=== PATIENT | female | born 1950 | race Caucasian/White ===

== ENCOUNTER 2024-01-22 03:14 | Observation (INO) | payer OTHER, SELFPAY ==
[2024-01-21 21:21] VITALS: BP 170/86
[2024-01-22] VITALS (12 sets, daily range): BP systolic 118–159; BP diastolic 65–81; PULSE 54–71; BMI 26.6; BMI 27.4
--- NOTE | 2024-01-22 00:45 | ED.GENMED ---
History of Present Illness
General
Chief Complaint: Fall
Source: patient and family (Son)
Exam Limitations: none
Time Seen by Provider: 01/22/24 00:20
Nursing documentation reviewed up to this point in time: agreed with
History of Present Illness
History of Present Illness:
73-year-old female with past medical history of hyperlipidemia who presents to the emergency room with her son via EMS for evaluation of left-sided numbness and heaviness; patient also reports some musculoskeletal complaints after a fall last week.
Patient reports that she started to have some tingling in her left leg this evening, son says that around 6 PM while they were eating dinner she got up from the table and was dragging her left leg. She says that her leg feels 'heavy.' He says that
she began to complain of numbness in her left arm and the left leg and EMS called to bring her to the hospital. Patient says that symptoms have improved slightly but she still is not back to normal. In addition to numbness and tingling in the left
arm and leg, left-sided heaviness she also reports some numbness in the left face. She denies any change in her vision or speech. She denies any headache. Her son does note that she has been generally weak and has had some dizziness over the past
week or so. In addition to above patient is also complaining of pain in her left hip and left shoulder/scapula�apparently she had a fall 10 days ago from ground-level and landed on her left hip and has had pain in the left upper back and the left
hip since. She is on aspirin, denies being on other blood thinners.
Review of Systems
Review of Systems
All Other Systems: ROS reviewed and negative except as documented in HPI and ROS
Constitutional: Reports fatigue; Denies fever or chills
Respiratory: Denies trouble breathing
Cardiac: Denies chest pain or palpitations
ABD/GI: Denies abdominal pain, nausea or vomiting
: Denies flank pain
Musculoskeletal: Reports joint pain and back pain; Denies neck pain
Neurological: Reports dizzy, weakness and numbness; Denies headache
Phy Exam
Physical Exam
Physical Exam:
General: Awake, alert, oriented x3; no acute distress
Head: Normocephalic, atraumatic
Eyes: Conjunctiva normal, EOMI, pupils equal round and reactive to light bilaterally
Throat: Airway intact, handling secretions
Neck: Trachea midline, no cervical spine tenderness
Lungs: Clear to auscultation bilaterally, no wheezing, rales, rhonchi
Heart: Regular rate and rhythm, no murmurs, gallops, or rubs
Abd: Soft, non distended, nontender
Back: Mild tenderness in the left scapular/subscapular region but no bruising, no midline thoracic or lumbar tenderness
Neuro: Patient reports subjective diminished sensation to left face, cranial nerves otherwise intact 2 through 12, speech fluid no dysarthria, no limb ataxia, she has pronator drift left upper extremity and drift in the left lower extremity, reports
subjective diminished sensation left arm and leg; strength intact 5/5 right upper and lower extremity with no drift
Skin: no rash, no lacerations, no bruising or ecchymosis or other signs of acute trauma
Extremities: Patient reports some mild pain on range of motion of the left hip; she also reports some mild pain on range of motion of the left shoulder which is apparently a chronic issue; no other tenderness in her extremities, moves right upper
and lower extremity through comfortable range of motion; pulses in all extremities
Scores
NIH Stroke Score
Level of Consciousness: 0 - Alert
LOC Questions: 0-Answers both correctly
LOC Commands: 0-Performs both correctly
Best Horizontal Gaze: 0-Normal
Visual Resendiz: 0=Normal, no visual loss
Facial Palsy: 0=Normal, symmetrical
Motor - Right Arm: 0=No drift 10 seconds
Motor - Left Arm: 1=Drift < 10 seconds
Motor - Right Le-No drift 5 seconds
Motor - Left Le-Drift < 5 seconds
Limb Ataxia: 0-Absent
Sensation: 1-Mild loss
Best Language: 0-No aphasia
Dysarthria: 0-Normal
Extinction and Inattention: 0-No abnormality
Total Score:: 3
Heart Failure Risk
Heart Failure Risk Score: Not Applicable
Heart Score for Chest Pain Patients
STEMI patient?: Not applicable
Withdrawal Assessment of Alcohol
Withdrawal Assessment Completed?: Not applicable
Course
Orders/Labs/Results
Orders:
Orders
01/22/24 00:23
CR Hip - LT w/wo Pel 2-3 Vw* Urgent
Comment:
Reason For Exam: left hip pain s/p fall
Include a pelvis x-ray?: Yes
01/22/24 00:24
CR Shoulder - Left Min 2 View* Urgent
Comment:
Reason For Exam: shoulder pain s/p fall
01/22/24 00:40
CT Chest W/o Iv Contrast Urgent
Comment:
Reason For Exam: left scapular/rib pain s/p fall last week
CT Head W/o Cont STROKE ALERT Urgent
Reason For Exam: left sided numbness/weakness
01/22/24 00:41
CT Head/Neck Ang STROKE ALERT Urgent
Comment:
Reason For Exam: left sided numbness/weakness
NEUROLOGY CONSULT Urgent
Consulting Provider: Burak Houser
Was physician already notified: Yes
Bedside Glucose- Treatment ONCE
Cardiac Monitoring- Treatment ONCE
Vital Signs- Treatment ONCE
Frequency: Hourly
COVID-19 Antigen Urgent
Source: Nasal Swab
Complete Blood Count/With Diff Urgent
Comprehensive Metabolic Panel Urgent
Urinalysis Reflex To Culture Urgent
O2 Therapy [RESP] Stat
Titrate/Wean O2 to maintain O2 sat greater than (%): 90
Pulse Ox/cont/shift [RESP] Stat
Quantity: 1
01/22/24 00:42
Electrocardiogram (*1) Stat
Reason for Study: Other
Other Reason for Exam: neuro symptoms
CT Brain Perfusion Urgent
Comment:
Reason For Exam: left sided numbness/weakness
EKG- Treatment ONCE
Vital Signs
Initial and Last Documented VS:
Initial Vital Signs
Temp Pulse Resp BP Pulse Ox
36.6 C 68 24 170/86 97
01/21/24 21:21 01/21/24 21:21 01/21/24 21:21 01/21/24 21:21 01/21/24 21:21
Last Documented Vital Signs
Temp Pulse Resp BP Pulse Ox
36.6 C 68 24 170/86 97
01/21/24 21:21 01/21/24 21:21 01/21/24 21:21 01/21/24 21:21 01/21/24 21:21
MDM/Problems Addressed
Differential Diagnosis Includes:
Left-sided weakness/numbness: Stroke�hemorrhagic or ischemic, subdural hemorrhage or other traumatic head injury, radiculopathy
Left upper back pain: Rib fracture, scapular fracture/shoulder injury, contusion
Left hip pain: Fracture, contusion, arthritis
MDM/Problems Addressed:
73-year-old female presents to the emergency room with her son for evaluation of left-sided numbness and tingling, heaviness. Onset at some point this afternoon, noticed by son at around 6 PM. Also complaining of some pain in the left upper back
and left hip status post fall 10 days ago. She is on aspirin no other blood thinners. Hypertensive otherwise normal vitals. Physical exam as above. Stroke alert called immediately after my initial assessment. IV placed labs sent off including a
CBC and a CMP. Will check CT head, CTA head and neck, CT perfusion. Will check CT chest to rule out rib fracture after a fall. Check x-ray of the left hip. Will check EKG. Monitor closely reassess after the above.
Chronic conditions affecting care:
Hyperlipidemia
Acute Exacerbation and/or Progression of Chronic Illness:
Acutely hypertensive
Acute Exacerbation and/or Progression of Chronic Illness: HTN
*Radiology
Radiology exam reviewed: radiology read reviewed
*Pulse Oximetry
Patient hypoxic: no
*Critical Care Note
Total Time (30-74mins, 75-104mins- exclusive of procedures): Not Applicable
Data Reviewed
Source: patient, family and ambulance crew
Patient Management
Discussion with other providers: Hospitalist (Discussed with hospitalist) and Transcripter (Discussed with neurologist)
Escalation/DeEscalation of care consider admission/obs:
Admission indicated
ED Attending Note
-
Portions of this chart may have been created with voice recognition software.� Occasional wrong word or��sound alike� substitutions may have occurred due to the inherent limitations of voice recognition software.
Discharge Plan
Departure
Prescriptions:
No Action
atorvastatin 10 mg Tablet
10 mg PO HS
aspirin 81 mg Tablet,Delayed Release (Dr/Ec)
81 mg PO DAILY
Referrals:
UNKNOWN - PT DOES,NOT KNOW [Unknown Provider] -
Interventions
Interventions:
*Risk Screen - Suicide Last Done: 01/21/24 21:21
*General Assessment Last Done: 01/21/24 23:50
*Neglect/Abuse Screening Last Done: 01/21/24 21:21
ED- Fall Risk Assessment Last Done: 01/21/24 23:50
*ED COVID-19 Vaccine History Last Done: 01/21/24 23:50
ED-Musculoskeletal Assessment Last Done: 01/21/24 23:50
ED- Neurological Assessment Last Done: 01/21/24 23:50
ED-Skin Assessment Last Done: 01/21/24 23:50
Discharge Date and Time
Print Language: [place] Islander
[2024-01-22 01:24] LABS: % Basophils 0.4 % (0-2); % Eosinophils 4.5 % (0-6); % Immature Granulocytes 0.1 % (0-0.5); % Lymphocytes 31.1 % (20.5-51.1); % Neutrophils 53.9 % (42.2-75.2); Absolute Eosinophils 0.4 10^3/uL (0-0.7); Absolute Lymphocytes 2.5 10^3/uL (1.2-3.4); Absolute Monocytes 0.8 10^3/uL (0.1-0.6); Absolute Neutrophils 4.3 10^3/uL (1.4-6.5); Hematocrit 35.9 % (37.0-47.0); Hemoglobin 11.8 g/dL (12.0-16.0); Mean Corp Hgb Conc. 32.9 g/dL (33.0-37.0); Mean Corpuscular Hgb 30.8 pg (27.0-31.0); Mean Corpuscular Volume 93.7 fL (81.0-99.0); Nucleated Red Blood Cells % 0 %; Platelet Count 248 10^3/uL (130-400); Red Blood Cell Count 3.83 10^6/uL (4.20-5.40); Red Cell Dist. Width 12.2 % (11.5-14.5); White Blood Cell Count 7.9 10^3/uL (4.8-10.8)
[2024-01-22 01:25] LABS: Glucose - Point of Care 101 mg/dl (70-99)
[2024-01-22 01:32] LABS: COVID-19 Antigen Negative (Negative)
[2024-01-22 01:43] LABS: ALT (SGPT) 21 U/L (0-35); AST (SGOT) 25 U/L (14-36); Albumin 3.9 g/dl (3.5-5.0); Alkaline Phosphatase 91 U/L (38-126); Blood Urea Nitrogen 15 mg/dl (7-17); Calcium 9.6 mg/dl (8.4-10.2); Carbon Dioxide 23 mmol/L (22-30); Chloride 103 mmol/L (98-107); Estimated Creatinine Clearance 54 ml/min; Glucose 102 mg/dl (70-99); Potassium 4.5 mmol/L (3.5-5.1); Sodium 139 mmol/L (135-145); Total Bilirubin 0.5 mg/dl (0.2-1.3); Total Protein 6.4 g/dl (6.3-8.2); eGFR > 60.00
[2024-01-22 01:43] LABS: Urine Albumin Negative (Neg - Trace); Urine Bilirubin Negative (Negative); Urine Character Clear (Clear); Urine Color Yellow; Urine Glucose Negative (Negative); Urine Ketone Negative (Negative); Urine Leukocyte Negative (Negative); Urine Nitrite Negative (Negative); Urine Occult Blood Negative (Negative); Urine Specific Gravity 1.005 (<1.030); Urine Urobilinogen Negative (Neg - 1+)
[2024-01-22] MEDS: PLAVIX 300 MG PO (01:56)
[2024-01-22] MEDS: ASPIRIN 325 MG PO (01:56)
--- NOTE | 2024-01-22 03:04 | HPS.HSE ---
Family Physician
-
Family Physician: ARELI Faustin
Chief Complaint
-
L Weakness
History of Present Illness
Patient is a 73y F with PMH significant for prior CVA and depression who presents to ED complaining of left-sided weakness this evening. History obtained primary from the son / son serving as american sign language interpreter. Son states that they had dinner this
evening and she seemed to be feeling well. After dinner, she stood and noted weakness in her L LE causing unsteady gait. She went to sit down and then appreciated weakness into the L arm and hand and some numbness in the L face. Patient was
brought to the ED for further evaluation and treatment.
At the time of my examination, patient feels at her usual baseline. No residual numbness or weakness.
Patient had no associated headache, vision changes, etc. No chest pain or dyspnea.
Son states that she has been feeling very tired / fatigued for the past week or so. No specific / focal symptoms such as F/C, cough, N/V/D or urinary complaints.
Patient had a similar episode about 5 years ago. She was taken to the hospital at that time and told that she had a stroke.
Medical History
Past Medical History
Past Medical History: Reports Other
Additional Past Medical History:
ASCVD / CVA
Anxiety / Depression / Insomnia
GERD
Vitamin D Deficiency
Past Surgical History: Reports Other
Additional Past Surgical History:
Appendectomy
Social History
Tobacco: Non-smoker
Alcohol: Occasional
Drug: None
Family History
Family History: Not pertinent
Allergies / Home Medications
Allergies reflects when Allergies were last updated in [facility].
Home Medications with original date entered in [facility]
Allergy/Medication List:
Allergies
Allergy/AdvReac Type Severity Reaction Status Date / Time
No Known Allergies Allergy Verified 01/21/24 21:27
Home Medications
aspirin 81 mg tablet,delayed release 81 mg PO DAILY 01/12/22
atorvastatin 10 mg tablet 10 mg PO HS 01/12/22
cholecalciferol (vitamin D3) 25 mcg (1,000 unit) tablet (Vitamin D3) 25 mcg PO DAILY 01/22/24
hydroxyzine HCl 25 mg tablet 25 mg PO DAILY PRN sleep 01/22/24
pantoprazole 40 mg tablet,delayed release 40 mg PO DAILY 01/22/24
sertraline 25 mg tablet 25 mg PO HS 01/22/24
Review of Systems
-
History Source: Patient and Family
A 12 point ROS was completed and negative except as noted: Yes
Constitutional: Reports Fatigue; Denies Fever or Chills
EENT: Denies Sore Throat
Respiratory: Denies Cough or Trouble Breathing
Cardiac: Denies Chest Pain or Palpitations
Abdomen/GI: Denies Abdominal Pain, Nausea, Vomiting or Diarrhea
: Denies Dysuria, Frequency or Flank Pain
Musculoskeletal: Reports Muscle Pain (occasional cramping in the L arm and leg specifically - not similar to tonight's symptoms.); Denies Joint Pain or Edema
Neurological: Reports Weakness and Numbness; Denies Dizzy or Headache
Psych: Denies Depression or Anxiety
Physical Exam
Vital Signs
Vital Signs
Temp Pulse Resp BP Pulse Ox
97.9 F 78 27 159/72 99
01/21/24 21:21 01/22/24 01:30 01/22/24 01:30 01/22/24 01:22 01/22/24 01:23
Physical Exam
General: Other (73y F in no acute distress.)
HEENT: Moist mucous membranes and PERRLA
Respiratory: Clear; No Wheezes, Rales or Rhonchi
Cardiac: S1/S2 and Regular Rhythm; No Murmur
GI: Soft, Non Tender, Non Distended and Normal Bowel Sounds
Musculoskeletal: No Clubbing, No Cyanosis and No Edema
Neuro: AO x 3 and Nonfocal/grossly intact
Laboratory Results
-
01/22/24 01:15
01/22/24 01:15
Laboratory Results
Total Bilirubin 0.5 mg/dl (0.2-1.3) 01/22/24 01:15
AST 25 U/L (14-36) 01/22/24 01:15
ALT 21 U/L (0-35) 01/22/24 01:15
Alkaline Phosphatase 91 U/L (38-126) 01/22/24 01:15
Impression/Plan
-
A/P: Patient is a 73y F with PMH significant for prior CVA who presents to ED complaining of L sided weakness this evening.
Left-Sided Weakness
ASCVD / Prior CVA
- Observe overnight for further evaluation and treatment.
- Similar episode (also L sided weakness) about 5 years ago attributed to CVA.
- CT in the ED this evening unremarkable.
- Check MRI in AM.
- DAPT for now. Continue statin.
- Neuro eval, PT / OT / Speech evals in the AM.
- Follow for any new / recurrent focal complaints or deficits.
- Check iron studies given complaints of frequent muscle cramping.
- Encourage adequate fluid intake.
Anxiety / Depression
- Stable. Continue current med regimen.
DVT Prophylaxis: SCDs
Code Status: Full
--- NOTE | 2024-01-22 05:00 | PTCARENOTE ---
no delay received. [facility]ox[facility] 0, vss. sb on monitor. call jauregui in reach. will monitor.
[2024-01-22 05:37] LABS: Hematocrit 35.2 % (37.0-47.0); Hemoglobin 11.9 g/dL (12.0-16.0); Mean Corp Hgb Conc. 33.8 g/dL (33.0-37.0); Mean Corpuscular Volume 88.7 fL (81.0-99.0); Mean Platelet Volume 9.2 fL (7.4-10.4); Platelet Count 264 10^3/uL (130-400); Red Blood Cell Count 3.97 10^6/uL (4.20-5.40); Red Cell Dist. Width 12.3 % (11.5-14.5); White Blood Cell Count 7.6 10^3/uL (4.8-10.8)
[2024-01-22 05:52] LABS: Blood Urea Nitrogen 15 mg/dl (7-17); Carbon Dioxide 23 mmol/L (22-30); Chloride 106 mmol/L (98-107); Estimated Creatinine Clearance 63 ml/min; Glucose 98 mg/dl (70-99); HDL Cholesterol 52 mg/dl; Iron 103 ug/dl (37-170); LDL Cholesterol, Calculated 135 mg/dl; Potassium 4.3 mmol/L (3.5-5.1); Sodium 143 mmol/L (135-145); Total Cholesterol 208 mg/dl (50-199); Triglyceride 109 mg/dl (10-149); Very Low Density Lipoprotein 21 mg/dl (0-30); eGFR > 60.00
[2024-01-22 06:18] LABS: Percent Saturation 35 % (20-50); Total Iron Binding Capacity 290 ug/dl (265-497)
[2024-01-22 06:21] LABS: TSH Reflex To Free T4 1.39 uIU/ml (0.47-4.68)
[2024-01-22] MEDS: PLAVIX 75 MG PO (08:06)
[2024-01-22] MEDS: ASPIR LOW (ENTERIC COATED) 81 MG PO (08:06)
--- NOTE | 2024-01-22 08:35 | PTOTSP ---
Speech Language Pathology
Pt seen for speech and cognitive-linguistic evaluation. Video translator interpreter for Theodora (ID [id number]) utilized during evaluation. Sons present after evaluation and provided information as well. No dysarthria noted, although pt states she sometimes
has trouble with her speech. Teaching Associate did not note this, and sons denied this. Mod cognitive deficits noted. Sons reported that pt is typically very repetitive with poor memory. She does not cook or drive, and someone is always at home with
her.
Pt also seen for clinical bedside swallow evaluation. She reported she chokes with solids. She is unable to give timeline of this, just that it has happened as she has aged. Son confirmed choking episodes. P.O. trials of regular solids and thin
liquids provided. Adequate mastication, bolus formation, and A-P transit noted with no oral residue. No overt signs of aspiration. Pt denied any globus sensation.
Recommend:
(1) VSE given choking episodes and hx of CVA
(2) Regular solids/thin liquids pending study
(3) Aspiration precautions: sit upright, slow rate, frequent sips of liquids during meals
(4) Meds as tolerated
(5) BUSINESS PROCESS MODELER to continue to follow
--- NOTE | 2024-01-22 11:30 | PTOTSP ---
Speech Language Pathology
VIDEOFLUOROSCOPIC SWALLOWING EXAMINATION (VSE) completed. Oropharyngeal phase of swallow WFL. No significant pharyngeal residue noted. No penetration/aspiration noted with any consistencies trialed. With moderately thick liquids via tsp, mild
amount of cervical esophageal residue noted, which cleared. Otherwise, esophageal sweep demonstrated clear esophagus. No etiology found for reports of choking with food at home.
Recommend:
(1) Regular solids/thin liquids
(2) General aspiration precautions
(3) Meds as tolerated
(4) Further dysphagia tx not indicated. CHARM FILTER OPERATOR HELPER to follow for cognitive-linguistic tx pending results of MRI
--- NOTE | 2024-01-22 11:38 | CON.NEURO4 ---
Consultation - Neurology 4
-
CONSULTING PHYSICIAN: Faviola
REFERRING PHYSICIAN: Dr. Mak
DICTATED BY: Faviola
DATE/TIME OF REQUEST: 01/22/24 in early AM
DATE/TIME OF CONSULTATION: 01/22/24 at 1030
Reason for Consultation: stroke/tia
History of Present Illness:
73-year-old female with a past medical history of stroke that occurred about 5 years ago resulting in some degree of left lower extremity weakness and left-sided 'coldness' who speaks only Beninese brought in yesterday evening complaining of
left-sided weakness. Her son told the ER that she had had dinner and seemed to be feeling fine. After dinner she showed up and they noted left lower extremity weakness, unsteady gait and sat down she noticed left arm weakness as well as left hand
weakness and some numbness in her left face.She also says that she 'touched her fingers on her left hand and could not feel anything.
She has reportedly been very fatigued over the past week.
On admission it was documented that she felt back to her usual baseline. However, today she says that she 'feels better than yesterday but not quite back to normal.' She was unable to quantify the degree of left lower extremity weakness and
left-sided sensory changes that she feels at baseline. Interview/examination were conducted with assistance from language line.
Past Medical History:
ASCVD
CVA about 5 years ago
Anxiety / Depression / Insomnia
GERD
Vitamin D Deficiency
Past Surgical History:
Appendectomy
Social History
Tobacco: Non-smoker
Alcohol: Occasional
Drug: None
Family History
Family History: Not pertinent
Allergies
No Known Allergies Allergy (Verified 01/21/24 21:27)
Home Medications
�Medication �Instructions �Recorded
aspirin 81 mg tablet,delayed 81 mg PO DAILY 01/12/22
release
atorvastatin 10 mg tablet 10 mg PO HS 01/12/22
cholecalciferol (vitamin D3) 25 25 mcg PO DAILY 01/22/24
mcg (1,000 unit) tablet (Vitamin
D3)
hydroxyzine HCl 25 mg tablet 25 mg PO DAILY PRN sleep 01/22/24
pantoprazole 40 mg tablet,delayed 40 mg PO DAILY 01/22/24
release
sertraline 25 mg tablet 25 mg PO HS 01/22/24
Review of Symptoms:
Patient denies any fever, headache, chest pain, shortness of breath, GI or symptoms.
�Per the HPI.�All systems are reviewed negative except above.
Vital Signs
Temp Pulse Resp BP Pulse Ox
98 F 69 16 147/69 98
01/22/24 11:18 01/22/24 11:18 01/22/24 11:18 01/22/24 11:18 01/22/24 11:18
Lab Results
01/22/24 05:24
01/22/24 05:24
Sodium 143 mmol/L (135-145) 01/22/24 05:24
Sodium Cancelled 01/22/24 05:24
Potassium 4.3 mmol/L (3.5-5.1) 01/22/24 05:24
Potassium Cancelled 01/22/24 05:24
BUN 15 mg/dl (7-17) 01/22/24 05:24
BUN Cancelled 01/22/24 05:24
Glucose 98 mg/dl (70-99) 01/22/24 05:24
Glucose Cancelled 01/22/24 05:24
Calcium 10.0 mg/dl (8.4-10.2) 01/22/24 05:24
Calcium Cancelled 01/22/24 05:24
LDL Cholesterol, Calc 135 mg/dl 01/22/24 05:24
LDL Cholesterol, Calc Cancelled 01/22/24 05:24
Physical Exam:
The patient is afebrile, heart sounds S1 and S2 are regular , and chest is clear to auscultation bilaterally.
NIH Stroke Scale :
I performed the NIH stroke scale on the patient on 01/22/24 at 11am. The patient scored 3 points on the NIH stroke scale assessment, which were assigned as follows: 2 for LLE weakness, 1 for diminished sensation
Neurologic Examination:
The patient is awake, alert and oriented x 3. She is able to follow commands and answer questions; at times details of her history were unclear. There is clear dysarthria; testing for aphasia limited as patient speaks only faroese/could not read
austrian. On cranial nerve assessment, pupils are 3 mm bilateral, round and reactive to light and accommodation. Visual house are full. Extraocular movements are intact. Facial sensations are intact and bilaterally symmetrical, there is no facial
asymmetry. Hearing is intact bilaterally to normal conversation volume. Tongue palate and uvula are midline. Sternocleidomastoid strengths are full bilaterally. Motor strengths are 5/5 bilateral UEs; LLE at least 3/5, unclear if this is her
baseline. RLE full. No involuntary movement noted. Deep tendon reflexes are 2+ bilateral upper and lower extremities and Babinski is absent bilaterally. Sensations of temperature, LT were diminished in the L face, arm and leg. There was no
extinction noted on double simultaneous stimulation. Coordination is intact by finger to nose bilaterally.
Neuro Imaging:
HCT: negative for any acute abnormality
CTA head/neck: Limited evaluation of the origins of the great vessels from the thoracic aorta because of streak artifact from dense contrast within the left brachiocephalic vein.
Mild to moderate atherosclerotic disease of the proximal right internal carotid artery with narrowing in the range of 25% diameter reduction.
Measured diameter reduction of the left proximal ICA of 49%, borderline for hemodynamically significant stenosis. Consider further evaluation with cerebrovascular ultrasound.
No evidence for intracranial large vessel occlusion or high-grade stenosis.
Dominant left vertebral artery with smaller caliber right vertebral artery. No significant narrowing of the vertebral, basilar, or posterior cerebral arteries.
CTP:
No perfusion abnormality identified to suggest infarct or ischemia conforming to a specific arterial vascular territory.
Impression:
ANNEL HILL is a 73 year old F who has presented to the hospital with L sided numbness and LLE weakness, worsened from her baseline. She has some component of L leg and arm 'coldness' and LLE weakness since her stroke 5 years ago, but the details
regarding her baseline were unclear.
Differential includes stroke symptom recrudescence vs. TIA/small stroke. Initially patient reported returning to her baseline, so this would be c/w TIA. However, now she is telling me she has never felt quite back to her baseline so this may be
stroke.
Patient has the following risk factors for their symptoms:
ASCVD
CVA about 5 years ago
IV Tenecteplase/IAT candidacy: not a candidate given back to her baseline per H&P. No LVO for IAT
Recommendations:
-check MRI brain without contrast to evaluate for stroke
-see CTA results above, CUS ordered
-BP goal is normotension.
continue DAPT x 21 days, then d/c Plavix, continue ASA
- Check hemoglobin A1C. Goal is normoglycemia.
- Continue atorvastatin. Check LDL. Goal LDL after stroke is <70.
- Check an echocardiogram.
-PT/OT/ST evaluations
- DVT prophylaxis
-continue neurochecks
Discussed patient care with: patient, Dr. Houser, nursing
--- NOTE | 2024-01-22 11:43 | W.PN.UPDATE ---
Update Note
Progress Note Update
Sand examined using translational line [id number]
Stated she had left lower extremity weakness and heaviness yesterday. Also has some numbing on the bilateral hands.
Denies severe back pain.
States the heaviness in the left leg has significantly improved.
General: Other (73y F in no acute distress.)
HEENT: Moist mucous membranes and PERRLA
Respiratory: Clear; No Wheezes, Rales or Rhonchi
Cardiac: S1/S2 and Regular Rhythm; No Murmur
GI: Soft, Non Tender, Non Distended and Normal Bowel Sounds
Musculoskeletal: No Clubbing, No Cyanosis and No Edema
Neuro: AO x 3 and Nonfocal/grossly intact
A/P: Patient is a 73y F with PMH significant for prior CVA who presents to ED complaining of L sided weakness this evening.
Left-Sided Weakness
ASCVD / Prior CVA
- Similar episode (also L sided weakness) about 5 years ago attributed to CVA.
- CT head negative
- CT Head/neck-Measured diameter reduction of the left proximal ICA of 49%, borderline for hemodynamically significant stenosis. Consider further evaluation with cerebrovascular ultrasound.
- Check MRI brain.
- DAPT for now. Continue statin.
- Neuro eval, PT / OT /
- Follow for any new / recurrent focal complaints or deficits.
- Passed vse-okay for regular food consistency.
- Check iron studies given complaints of frequent muscle cramping. Check vit d and b12 level. TSH wnl.
- Left hip xray -negative for fractures.
- Encourage adequate fluid intake.
Anxiety / Depression
- Stable. Continue current med regimen.
HLD
-Increase statin dose
DVT Prophylaxis: SCDs
Code Status: Full
[2024-01-22] MEDS: TYLENOL 650 MG PO ×3 (13:00→21:44)
[2024-01-22 13:06] LABS: Ferritin 58.2 ng/ml (11.1-264.0)
[2024-01-22 13:37] LABS: Folate > 20.0 ng/ml (2.76-20); Vitamin B12 494 pg/ml (239-931)
--- NOTE | 2024-01-22 14:15 | CM ---
CM attempted bedside visit and pt off unit
Call with son/Ross
Pt resides with her son and grandson (20 y/o) in a 2 SH with 2 MITESH
Full flight to 2nd floor
Pt's other son is visiting for the next month
Pt is a 1 person assist for transfers and ambulates independently with her WW
Family or friends assist with shower transfers and she bathes independently with use of a shower chair
Family assist with IADLs
No financial insecurities
PCP- Jessica Barakat
Rx- [facility]
PT/OT pending
Pt is OBS- notice verbally reviewed
Insulation Board Back Tender left bedside for his visit later today
Discharge Disposition- anticipate home, watch for higher needs
[2024-01-22] MEDS: TUMS 1 TABLET PO (20:29)
[2024-01-22] MEDS: LIPITOR 40 MG PO (21:44)
[2024-01-22] MEDS: ZOLOFT 25 MG PO (21:44)
--- NOTE | 2024-01-22 23:26 | PTCARENOTE ---
PT NIH=1 for decrease sensation on left side. pt report stomach indigestion and right leg pain. administered Tylenol w/ some relieve.
[2024-01-23] VITALS (8 sets, daily range): BP systolic 120–151; BP diastolic 63–78; PULSE 56–71; O2SAT 97; BMI 27.1
[2024-01-23] MEDS: ASPIR LOW (ENTERIC COATED) 81 MG PO (08:00)
[2024-01-23] MEDS: PLAVIX 75 MG PO (08:00)
[2024-01-23] MEDS: TYLENOL 650 MG PO ×2 (08:06→20:07)
[2024-01-23 08:29] LABS: Vitamin D, 25-OH*** 69.4 ng/mL (30-80)
--- NOTE | 2024-01-23 10:56 | PTCARENOTE ---
Patient c/o leg cramps this am, requested tylenol with relief. 1030 pt c/o pain in her back between her shoulders. Stated her 'back was cold' Vital signs stable, pulse ox 99% on room air, warm blanket provided . Family friend visiting .
--- NOTE | 2024-01-23 12:42 | W.PN.HOSP.TC ---
Today's Communication/Plan
-
trend trop
start dispo efforts
asa/plavix
Assessment / Plan
Assessment / Plan
A/P: Patient is a 73y F with PMH significant for prior CVA who presents to ED complaining of L sided weakness this evening.
Left-Sided Weakness likely 2/2 TIA
ASCVD / Prior CVA
- Similar episode (also L sided weakness) about 5 years ago attributed to CVA.
- CT head negative
- CT Head/neck-Measured diameter reduction of the left proximal ICA of 49%, borderline for hemodynamically significant stenosis. Consider further evaluation with cerebrovascular ultrasound.
- MRI brain negative for acute stroke. Mild atrophy.
- DAPT for now and then discontinue Plavix continue aspirin. Continue statin.
- Neuro eval, PT / OT /
- Follow for any new / recurrent focal complaints or deficits.
- Passed vse-okay for regular food consistency.
- Left hip xray -negative for fractures.
- Encourage adequate fluid intake.
Anxiety / Depression
- Stable. Continue current med regimen.
HLD
-Increase statin dose
Low back pain
Lumbar spine x-ray no evidence of fracture. Mild to moderate diffuse degenerative disc disease.
Chest pain Resolved now
Likely atypical
-Check troponin. 1st negative.
-Echo with EF of 55 to 60%. Normal diastolic function. Normal biventricular size and function. Aortic sclerosis without stenosis. No evidence of pulmonary hypertension. No obvious cardiac source of emboli. No regional wall motion abnormality
seen.
DVT Prophylaxis: SCDs
Code Status: Full
PT/OT-
Anticipated Discharge: Within 24 hours
Subjective/Interval History
-
Date of Service: January 23, 2024
Patient felt hold and was complaining of chest pain. Chest pain resolved. States of back pain.
States of improvement in lower extremity cramping
Objective Data
-
Vital Signs:
Vital Signs
Temp Pulse Resp BP Pulse Ox
97.9 F 62 16 132/67 96
01/23/24 11:00 01/23/24 11:00 01/23/24 11:00 01/23/24 11:00 01/23/24 11:00
I&O
01/22/24 01/23/24 01/24/24
06:59 06:59 06:59
Intake Total 480 / 480 1200 / 1200
Balance 480 / 480 1200 / 1200
Data Reviewed
-
Total Time Spent with Patient (in minutes): 57
[2024-01-23 13:29] LABS: Troponin I < 0.012 ng/ml
--- NOTE | 2024-01-23 15:10 | W.PN.NEURO.1 ---
Today's Communication / Plan
-
d/c
Neuro Assessment/Plan
Assessment
ANNEL HILL is a 73 year old F who has presented to the hospital with L sided numbness and LLE weakness, worsened from her baseline. She has some component of L leg and arm 'coldness' and LLE weakness since her stroke 5 years ago, but the details
regarding her baseline were unclear.
Differential includes stroke symptom recrudescence vs. alternative cause for LUE symptoms (cervical radiculopathy?) and LLE weakness may be her baseline.
Patient has the following risk factors for their symptoms:
ASCVD
CVA about 5 years ago
Plan
Recommendations:
-reviewed MRI brain/recommendations in depth with patient via language line
-see CTA results above, CUS--no significant stenosis
-BP goal is normotension.
-can continue OP dosing of ASA, atorvastatin
-Echo--no cse
-PT/OT/ST evaluations
- DVT prophylaxis
-continue neurochecks
-needs OP f/u for testing for shoulder pain, possible cervical radiculopathy
Subjective/Objective
Subjective Data
Date of Service: January 23, 2024
feels back to baseline
complaining of L shoulder pain
Objective Data
Vital Signs
Temp Pulse Resp BP Pulse Ox
97.9 F 62 16 132/67 96
01/23/24 11:00 01/23/24 11:00 01/23/24 11:00 01/23/24 11:00 01/23/24 11:00
Lab Results
01/22/24 05:24
01/22/24 05:24
Sodium 143 mmol/L (135-145) 01/22/24 05:24
Sodium Cancelled 01/22/24 05:24
Potassium 4.3 mmol/L (3.5-5.1) 01/22/24 05:24
Potassium Cancelled 01/22/24 05:24
BUN 15 mg/dl (7-17) 01/22/24 05:24
BUN Cancelled 01/22/24 05:24
Glucose 98 mg/dl (70-99) 01/22/24 05:24
Glucose Cancelled 01/22/24 05:24
Calcium 10.0 mg/dl (8.4-10.2) 01/22/24 05:24
Calcium Cancelled 01/22/24 05:24
LDL Cholesterol, Calc 135 mg/dl 01/22/24 05:24
LDL Cholesterol, Calc Cancelled 01/22/24 05:24
Vitamin B12 494 pg/ml (239-931) 01/22/24 05:24
Patient Allergies
No Known Allergies Allergy (Verified 01/21/24 21:27)
Physical Exam
-
Examined with assistance from language line:
The patient is awake, alert and oriented x 3. She is able to follow commands and answer questions; at times details of her history were unclear. No clear dysarthria or aphasia; On cranial nerve assessment, pupils are 3 mm bilateral, round and
reactive to light and accommodation. Visual house are full. Extraocular movements are intact. Facial sensations are intact and bilaterally symmetrical, there is no facial asymmetry. Hearing is intact bilaterally to normal conversation volume.
Tongue palate and uvula are midline. Sternocleidomastoid strengths are full bilaterally. Motor strengths are 5/5 bilateral UEs; LLE at least 4/5, unclear if this is her baseline. RLE full. No involuntary movement noted. Deep tendon reflexes are 2+
bilateral upper and lower extremities and Babinski is absent bilaterally. Sensations of temperature intact diffusely now. There was no extinction noted on double simultaneous stimulation. Coordination is intact by finger to nose bilaterally.
--- NOTE | 2024-01-23 15:28 | CM ---
Chart reviewed and physical therapy thought patient may benefit from visiting nurses, caseworker intake spoke with son, patient lives with son and he would like visiting nurses, options reviewed and patient has selected [facility], referral sent to [facility].
Plan; Home with family when stable, and [facility].
--- NOTE | 2024-01-23 16:18 | VNURNOTE ---
Home Health Liaison met with patient's son Ross to discuss [facility] nurse/therapy, visits, schedule and homebound status. He is agreeable and understands that visits at home will be 2-3 x per week to assess and teach medical management. He is aware
that [facility] will contact them for start of care in 1-2 days after discharge from . He would like [facility] to contact him as well for assisted planning info once patient back home.
[facility] referral completed in [facility].
[2024-01-23] MEDS: LOVENOX 40 MG SC (17:24)
[2024-01-23 19:40] LABS: Troponin I < 0.012 ng/ml
[2024-01-23] MEDS: ZOLOFT 25 MG PO (20:07)
[2024-01-23] MEDS: LIPITOR 40 MG PO (20:07)
[2024-01-24 00:52] VITALS: BP 118/69; BP 141/75; BP 146/78; PULSE 62; PULSE 64; PULSE 67
[2024-01-24 02:13] LABS: Troponin I 0.019 ng/ml
[2024-01-24 03:53] VITALS: BP 158/80
[2024-01-24 05:33] VITALS: BMI 27.1
[2024-01-24 07:52] VITALS: BP 155/77
[2024-01-24] MEDS: PLAVIX 75 MG PO (08:10)
[2024-01-24] MEDS: ASPIR LOW (ENTERIC COATED) 81 MG PO (08:10)
[2024-01-24 08:35] VITALS: BP 124/66; BP 131/63; BP 132/64; PULSE 62; PULSE 63; PULSE 84
--- NOTE | 2024-01-24 11:06 | W.PN.HOSP.TC ---
Today's Communication/Plan
-
DC home with [facility]
Assessment / Plan
Assessment / Plan
A/P: Patient is a 73y F with PMH significant for prior CVA who presents to ED complaining of L sided weakness this evening.
Left-Sided Weakness ?stroke mimic
- Similar episode (also L sided weakness) about 5 years ago attributed to CVA.
- CT head negative
- CT Head/neck-Measured diameter reduction of the left proximal ICA of 49%, borderline for hemodynamically significant stenosis. Consider further evaluation with cerebrovascular ultrasound. Vascular ultrasound negative for significant stenosis.
- MRI brain negative for acute stroke. Mild atrophy.
- Asa continued. plavix stopped per neuro.
- Neuro eval, PT / OT /
- Follow for any new / recurrent focal complaints or deficits.
- Passed vse-okay for regular food consistency.
- Left hip xray -negative for fractures.
- Encourage adequate fluid intake.
Anxiety / Depression
- Stable. Continue current med regimen.
HLD
-Increase statin dose
Low back pain
Lumbar spine x-ray no evidence of fracture. Mild to moderate diffuse degenerative disc disease.
Chest pain Resolved now
Likely atypical
-trop negative Resolved.
-Echo with EF of 55 to 60%. Normal diastolic function. Normal biventricular size and function. Aortic sclerosis without stenosis. No evidence of pulmonary hypertension. No obvious cardiac source of emboli. No regional wall motion abnormality
seen.
DVT Prophylaxis: SCDs
Code Status: Full
PT/OT-home [facility]
More than 30 minutes spent in discharge including
Final examination of the patient
Summarizing hospital stay
Instructions for continuing care to all relevant caregivers
Preparation of discharge records, prescriptions, and referral forms
Total time spent (in minutes): 58
Anticipated Discharge: Today
Subjective/Interval History
-
Date of Service: January 24, 2024
Seen and examined using ceramics machine operator #[id number]
Feeling significantly better
Denies lower extremity pain or cramps.
Objective Data
-
Vital Signs:
Vital Signs
Temp Pulse Resp BP Pulse Ox
97.5 F 59 16 155/77 99
01/24/24 07:52 01/24/24 07:52 01/24/24 07:52 01/24/24 07:52 01/24/24 08:15
I&O
01/23/24 01/24/24 01/25/24
06:59 06:59 06:59
Intake Total 1200 / 1200 840 / 840
Balance 1200 / 1200 840 / 840
Physical Exam
-
General: Well Developed and No Apparent Distress
HEENT: Normocephalic, Atraumatic and Moist Mucous Membranes
Respiratory: Clear to Auscultation
Cardiac: Regular Rhythm and S1/S2; Negative Murmur, Rub or Gallop
GI: Soft, Nontender, Nondistended and Normal Bowel Sounds; Negative Organomegaly
Rectal: Deferred by Provider
Musculoskeletal: No Clubbing, No Cyanosis and No Edema
Skin: Negative Rash
Neuro: Awake, AO x 3, No Motor Deficits and Nonfocal/Grossly Intact
Psych: Calm
--- NOTE | 2024-01-24 11:13 | W.DCSUMMARY ---
Discharge Summary
Discharge Data
Date of Admission: 01/22/24
Date of Discharge: 01/24/24
-
Pending Results: No
Hospital Course
73-year-old female past medical history of CVA, anxiety, depression, hyperlipidemia, back pain who is presenting from home with lower extremity weakness. Patient has left lower extremity pain and cramping and have some suspicion of left upper
extremity weakness. Patient underwent CT of the head which is negative. Patient underwent CT Head/neck-Measured diameter reduction of the left proximal ICA of 49%, borderline for hemodynamically significant stenosis. Consider further evaluation
with cerebrovascular ultrasound. Vascular ultrasound negative for significant stenosis. MRI brain negative for acute stroke. Mild atrophy. Patient recently was started on Plavix in addition to aspirin which was continued. Per neurology stroke
symptoms could have been stroke recrudescence and/or radiculopathy of upper and lower extremity. Patient was significant improvement in weakness. Plavix was discontinued. Patient with elevated cholesterol and statin dose was increased.
Echocardiogram was done without significant changes. Echo with EF of 55 to 60%. Normal diastolic function. Normal biventricular size and function. Aortic sclerosis without stenosis. No evidence of pulmonary hypertension. No obvious cardiac
source of emboli. No regional wall motion abnormality seen. Patient was eval by physical and Occupational Therapy. Patient discharged home with [facility].
Discharge Plan
-
Patient Disposition: Home with Home Care
Discharge Diagnosis/Procedures: Left-sided weakness likely secondary to stroke recrudescence vs radiculopathy upper extremity and lower extremity
Condition: Fair
Diet: Low Cholesterol
Activity: With assistance and As tolerated
Driving Restrictions: As prior to admission
Other Services: [facility]
Referrals:
Jessica Barakat CRNP [Family Provider] - in less than 1 week
Kimberly Salmeron DO [Active] - in one to two months
Prescriptions:
New
atorvastatin 40 mg Tablet
40 mg PO HS 30 Days Qty: 30 0RF
Continued
aspirin 81 mg Tablet,Delayed Release (Dr/Ec)
81 mg PO DAILY
pantoprazole 40 mg Tablet,Delayed Release (Dr/Ec)
40 mg PO DAILY
sertraline 25 mg Tablet
25 mg PO HS
hydroxyzine HCl 25 mg Tablet
25 mg PO DAILY PRN (Reason: sleep)
cholecalciferol (vitamin D3) [Vitamin D3] 25 mcg (1,000 unit) Tablet
25 mcg PO DAILY
Rx Instructions:
1250 mcg
Discontinued
atorvastatin 10 mg Tablet
10 mg PO HS
Discharge Orders:
Discharge Patient (As Directed); Ordered 01/24/24
Ordered By: Manny Pereyra
Discharge Date and Time
Print Language: Theodora
[2024-01-24 11:30] VITALS: BP 142/66
--- NOTE | 2024-01-24 12:13 | CM ---
Patient does not speak Bengali
CM spoke with patient's son, Ross, via phone to discuss discharge plan; he will transport home and plans to be at the beside in 30 minutes
Plan: Discharge to home with home health services from [facility]
--- NOTE | 2024-01-24 12:58 | PTCARENOTE ---
Addendum entered by Marily Catherine RN 01/24/24 13:01:
SPoke with son on the phone who states that he is on his way to the hospital.
Original Note:
Rn appraisal coordinator-Reviewed discharge instructions with patient with language line #[id number].
== END 2024-01-24 13:25 | disposition home health service (06) ==
LOC: 4 WEST ACU 03:14
PROVIDERS: ADMITTING PHYSICIAN Hospitalist; ATTENDING PHYSICIAN Hospitalist; EMERGENCY PHYSICIAN Emergency Medicine; FAMILY PHYSICIAN Registered Nurse; OTHER PHYSICIAN Psychiatry & Neurology Neurology
DX: R53.1 Weakness (principal); R20.2 Paresthesia of skin; R20.0 Anesthesia of skin; M25.552 Pain in left hip; M25.512 Pain in left shoulder; M41.86 Other forms of scoliosis, lumbar region; M41.85 Other forms of scoliosis, thoracolumbar region; M51.37 Other intervertebral disc degeneration, lumbosacral region; W18.30XA Fall on same level, unspecified, initial encounter; Y93.9 Activity, unspecified; Y92.9 Unspecified place or not applicable; E78.00 Pure hypercholesterolemia, unspecified; F32.A Depression, unspecified; R29.818 Other symptoms and signs involving the nervous system; R26.81 Unsteadiness on feet; R47.1 Dysarthria and anarthria; I65.23 Occlusion and stenosis of bilateral carotid arteries; J84.10 Pulmonary fibrosis, unspecified; J98.11 Atelectasis; R53.83 Other fatigue; I25.10 Atherosclerotic heart disease of native coronary artery without angina pectoris; F41.9 Anxiety disorder, unspecified; R13.10 Dysphagia, unspecified; G47.00 Insomnia, unspecified; R07.9 Chest pain, unspecified; I70.0 Atherosclerosis of aorta; R94.31 Abnormal electrocardiogram [ECG] [EKG]; G31.9 Degenerative disease of nervous system, unspecified; P91.2 Neonatal cerebral leukomalacia; K21.9 Gastro-esophageal reflux disease without esophagitis; E55.9 Vitamin D deficiency, unspecified; I10 Essential (primary) hypertension; Z60.3 Acculturation difficulty; Z79.82 Long term (current) use of aspirin; Z86.73 Personal history of transient ischemic attack (TIA), and cerebral infarction without residual deficits; Z90.49 Acquired absence of other specified parts of digestive tract; Z11.52 Encounter for screening for COVID-19; Z79.02 Long term (current) use of antithrombotics/antiplatelets
CPT/HCPCS: 0042T; 70450; 70496; 70498; 70551; 71250; 72100; 73502; 74230; 80048; 80053; 80061; 81003; 82306; 82607; 82728; 82746; 82962; 83036; 83540; 83550; 84443; 84484; 85025; 85027; 87811; 92523; 92610; 92611; 93005; 93306; 93880; 97163; 97167; 97530; 97535; 99285; G0378; Q9967